=== PATIENT | female | born 1960 | race Hispanic/Latino ===

== ENCOUNTER 2023-08-11 02:42 | Emergency (ER) | payer BC, OTHER ==
[~2023-08-11] VITALS: Ht 154.9 cm; Wt 72.6 kg
[2023-08-11] MEDS ORDERED: KETOROLAC 30MG VIAL (30MG/ML) IV ONE (03:00)
[2023-08-11] MEDS ORDERED: ONDANSETRON 4MG INJ IVP ONE (03:00)
[2023-08-11] MEDS ORDERED: LACTATED RINGERS 1000ML 1,000 ML IV ONE (03:00)
[2023-08-11] MEDS ORDERED: MORPHINE 4 MG SYG IVP ONE (03:00)
[2023-08-11 03:17] LABS: BASOPHILS # (AUTO) 0.04 K/uL (0.00-0.20); BASOPHILS % (AUTO) 0.6 % (0.0-5.0); EOSINOPHILS # (AUTO) 0.07 K/uL (0.00-0.70); HEMATOCRIT 33.9 % (36-48); IMMATURE GRANULOCYTE ABSOLUTE 0.04 K/uL (0-1); LYMPHOCYTES % (AUTO) 14.8 % (21.0-51.0); MEAN CORPUSCULAR HEMOGLOBIN 21.6 pg (27.0-33.0); MEAN CORPUSCULAR HGB CONC 29.8 g/dL (32.0-36.0); MEAN CORPUSCULAR VOLUME 72.4 fL (79-99); MONOCYTES # (AUTO) 0.2 K/uL (0.1-1.0); MONOCYTES % (AUTO) 3.1 % (3.0-13.0); NEUTROPHILS # (AUTO) 5.5 K/uL (1.8-7.7); NEUTROPHILS % (AUTO) 79.9 % (40.0-77.0); PLATELET COUNT (AUTO) 326 K/uL (130-400); RED BLOOD CELL COUNT(AUTO) 4.68 MIL/uL (4.00-5.50); RED CELL DISTRIBUTION WIDTH 16.3 % (11.0-15.5); WHITE BLOOD COUNT (AUTO) 6.9 K/uL (4.8-10.8)
[2023-08-11 03:26] LABS: CREATININE 0.7 mg/dL (0.5-1.5); POTASSIUM 3.9 mmol/L (3.5-5.1)
[2023-08-11] MEDS ORDERED: KETAMINE HCL 100 MG/ML 5ML VIAL IJ ONE (03:27)
[2023-08-11 03:30] LABS: ALBUMIN 4.1 g/dL (3.5-5.0); BILIRUBIN,TOTAL 0.2 mg/dL (0.2-1.0); TOTAL PROTEIN, SERUM 8.2 g/dL (6.0-8.3)
[2023-08-11] MEDS ORDERED: KETAMINE 50MG/ML SYRINGE 50 MG/ML DISP.SYRIN IV ONE (03:30)
[2023-08-11] MEDS ORDERED: MORPHINE 2 MG SYG IVP ONE ×2 (03:30)
[2023-08-11] MEDS ORDERED: ACET-2743 PO (04:24)
[2023-08-11 04:36] VITALS: BP 141/65; PULSE 78; RESP 18; O2SAT 98
== END 2023-08-11 04:35 | disposition home or self-care (01) ==
LOC: EDH 02:42
DX: S43.084A Other dislocation of right shoulder joint, initial encounter (principal); G43.909 Migraine, unspecified, not intractable, without status migrainosus; I10 Essential (primary) hypertension; E78.00 Pure hypercholesterolemia, unspecified; Z98.890 Other specified postprocedural states; W18.39XA Other fall on same level, initial encounter; Y93.89 Activity, other specified; Y92.89 Other specified places as the place of occurrence of the external cause; Y99.8 Other external cause status
CPT/HCPCS: 99285; 23650; 96374; 71045; 96375; 96361; 82550; 80053; 85025; 36415; 73060; 73030 ×2; 99152; J2405; J2270; J1885; J3490

== ENCOUNTER → 2024-12-08 | Outpatient (CLI) | payer OTHER ==
[~2024-12-08] MED LIST: ACET-2743 PO
--- NOTE | 2024-12-08 10:32 | HMCIMG ---
CT HEART SAVER PROMOTIONAL HISTORY: Calcium scoring COMPARISON: None TECHNIQUE: Computed tomography of the heart was performed with ECG gating and suspended respiration. Postprocessing was performed on a computer workstation to obtain diastolic phase images, determine calcium score and provide a quantitative assessment of extent of disease. This CT included only the heart. HeartSaver score is 117.5. Please see cardiac calcium score report. The available CT chest images show no acute finding. CT was performed with one or more following dose reduction techniques: automated exposure control, adjustment of the mA and kv according to patient's size, or use of a iterative reconstruction technique.
== END | disposition home or self-care (01) ==
LOC: RAH 09:00
PROVIDERS: ATTEND Internal Medicine Cardiovascular Disease
DX: Z13.6 Encounter for screening for cardiovascular disorders (principal)
CPT/HCPCS: 75571